=== PATIENT | male | born 1935 | race Caucasian/White ===

== ENCOUNTER 2017-12-16 13:08 | Inpatient (IN) | payer OTHER, BC ==
--- NOTE | 2017-12-16 13:51 | EKG ---
Test Date: 2017-12-16 Test Time: 13:18:10 [employer]: GUIDO MEASUREMENT RESULTS: Intervals: Rate: 67 [place]: QRSD: 52 QT: 402 QTc: 424 [place]: P: [place]: QRS: 4 T: 0 INTERPRETIVE STATEMENTS: NORMAL SINUS RHYTHM rhythm Cannot rule out Anterior infarct, age undetermined Abnormal ECG No previous ECG available for comparison Electronically Signed On 12-16-17 13:51:20 CDT by Vicente Quigley
--- NOTE | 2017-12-16 14:13 | RAD REPORT ---
EXAM DESCRIPTION: RAD - Chest Single View - 12/16/2017 2:05 pm CLINICAL HISTORY: AMS, tachypnea Chest pain. COMPARISON: CHEST SINGLE VIEW dated 08/03/2014 FINDINGS: Portable technique limits examination quality. The lungs are grossly clear. The patient's chin obscures the left apex. The heart is normal in size. No displaced fractures. IMPRESSION: No acute intrathoracic process suspected.
--- NOTE | 2017-12-16 14:13 | RAD REPORT ---
EXAM DESCRIPTION: CT - Head Brain Wo Cont - 12/16/2017 1:36 pm CLINICAL HISTORY: MENTAL STATUS CHANGE Drowsiness COMPARISON: HEAD BRAIN W O CONTRAST dated 08/03/2014 TECHNIQUE: All CT scans are performed using dose optimization technique as appropriate and may inclu de automated exposure control or mA/KV adjustment according to patient size. FINDINGS: The patient could not be positioned normally due to clinical status which causes significa nt artifact, especially in the frontal lobe regions. Grossly, no acute hemorrhage or midline shift is seen.No hydrocephalus suspected.Moderate brain atrop hy and chronic microvascular ischemic changes are noted. The paranasal sinuses and mastoids are clear. The calvarium is intact. IMPRESSION: Limited examination due to patient positioning issues. Within this limitation, no gross acute finding is seen.
[2017-12-16 14:52] LABS: Urine Blood 3+ (NEG); Urine Glucose NEGATIVE (NEG); Urine Protein 3+ (NEG); Urine Specific Gravity 1.025 (1.005-1.030); Urine pH 6.5 (5.0-7.0)
[2017-12-16 14:54] LABS: Urine Bacteria >50 /HPF (NONE SEEN); Urine RBC LOADED /HPF (NONE SEEN)
[2017-12-16 14:55] LABS: Urine Culture Reflex Order NOT NEEDED
[2017-12-16 15:44] LABS: Absolute Lymphocytes (CBC) 1.3 K/uL (0.7-4.9); Absolute Monocytes 0.8 K/uL (0.1-1.3); Absolute Neutrophil 7.8 K/uL (1.8-8.0); Basophils % 0.6 % (0-1.3); Eosinophils % 0.4 % (0-4.4); Hematocrit 28.7 % (39.6-49.0); Lymphocytes % 12.9 % (15.3-44.8); MCH 27.9 pg (27.0-35.0); MCV 84.4 fL (80-100); MPV 7.3 fL (7.6-11.3); Monocytes % 8.1 % (3.3-12.3)
[2017-12-16 15:51] LABS: Protime INR 1.13
[2017-12-16] MEDS ORDERED: CEFTRIAXONE/SWI 1gm 1 GM/10 ML SYR ONE (15:59)
[2017-12-16 16:01] LABS: Potassium 5.4 mmol/L (3.5-5.1)
--- NOTE | 2017-12-16 17:42 | EDPHYS ---
Physician Documentation [facility] Name: Farhad Martin Jr Age: 82 yrs Sex: Male : 1935 Arrival Date: 12/16/2017 Time: 13:10 Bed 5 Private MD: ED Physician Jason Jackson HPI: 12/16 15:37 This 82 yrs old Male presents to ER via EMS with complaints of Altered Mental rn Status. 15:37 The patient presents with decreased responsiveness. Onset: The symptoms/episode rn began/occurred this morning. Possible causes: unknown. Current symptoms: In the emergency department the patient's symptoms are unchanged from the initial presentation. The patient has experienced a previous episode. Sent by long-term for AMS, + fever, last time had UTI when presented like this, per long-term, not at baseline. . Historical: - Allergies: 13:27 Hydrochlorothiazide; kr2 - Home Meds: 13:27 ferrous sulfate 325 mg (65 mg iron) Oral tab [Active]; Vitamin B-12 1,000 mcg Oral tab kr2 [Active]; mirtazapine 7.5 mg Oral tab [Active]; acarbose 100 mg Oral tab 3 times per day [Active]; Novolog 100 unit/mL Sub-Q soln [Active]; clonidine HCl 0.1 mg Oral tab 1 tab PRN [Active]; Vitamin C 500 mg Oral tab [Active]; Multiple Vitamins oral tab [Active]; atorvastatin 10 mg oral tab 1 tab once daily [Active]; gabapentin 400 mg oral cap [Active]; Januvia 100 mg oral tab 1 tab once daily [Active]; melatonin 3 mg Oral tab [Active]; tamsulosin 0.4 mg oral cp24 1 cap once daily [Active]; acetaminophen-codeine 300-30 mg Oral tab three times a day [Active]; docusate sodium 100 mg Oral cap [Active]; magnesium oxide 400 mg Oral cap [Active]; - PMHx: 13:27 Sepsis; Neoplasm of large intestine; Anemia; Hypertension; Dysphagia; Aphasia; Diabetes kr2 - IDDM; CVA; Dementia; Alzheimers; Hyperlipidemia; - PSHx: 13:27 Colostomy; kr2 - Immunization history:: Adult Immunizations unknown. - Social history:: Smoking status: Patient uses tobacco products, chewing tobacco. - Ebola Screening: : No symptoms or risks identified at this time. - Family history:: not pertinent. - Hospitalizations: : No recent hospitalization is reported. ROS: 15:47 Unable to obtain ROS due to altered mental status. rn Exam: 15:47 Constitutional: This is a well developed, well nourished patient who is somnolent, rn opens eyes to voice, doesn't follow commands Head/Face: Normocephalic, atraumatic. ENT: dry MM Neck: contracted and kyphotic state, non-tender Cardiovascular: Regular rate and rhythm with a normal S1 and S2. No gallops, murmurs, or rubs. Normal PMI, no JVD. No pulse deficits. Respiratory: mild tachypnea, clear bilateral breath sounds Abdomen/GI: Soft, non-tender, with normal bowel sounds. No distension or tympany. No guarding or rebound. No evidence of tenderness throughout. MS/ Extremity: Pulses equal, no cyanosis. Neuro: Somnolent, opens eyes to voice, doesn't follow commands Vital Signs: 13:28 BP 201 / 83; Pulse 74; Resp 19; Temp 99(O); Pulse Ox 97% on R/A; Weight 64.86 kg; kr2 Height 5 ft. 8 in. (172.72 cm); 14:57 BP 191 / 81; Pulse 75; Resp 19; Pulse Ox 97% on R/A; kr2 15:21 BP 185 / 79; Pulse 70; Resp 18; Pulse Ox 98% on R/A; dh3 17:25 BP 165 / 64; Pulse 68; Resp 20; Pulse Ox 99% on R/A; kr2 19:06 BP 170 / 78; Pulse 69; Resp 18; Pulse Ox 95% on R/A; mt 13:28 Body Mass Index 21.74 (64.86 kg, 172.72 cm) kr2 Procedures: 15:46 Peripheral line: by aseptic technique a peripheral line was placed in the left rn antecubital vein, Using u/s guidance, single stick, 4 syringes of blood pulled, good flush.. MDM: 13:10 Patient medically screened. rn 17:38 Differential Diagnosis: electrolyte abnormality, pneumonia, sepsis, UTI, volume rn depletion. 17:39 Data reviewed: vital signs, nurses notes, lab test result(s), radiologic studies, CT rn scan, plain films, and as a result, I will admit patient. Counseling: I had a detailed discussion with the patient and/or guardian regarding: the historical points, exam findings, and any diagnostic results supporting the discharge/admit diagnosis, lab results, radiology results, the need for further work-up and treatment in the hospital. Response to treatment: the patient's symptoms have mildly improved after treatment, and as a result, I will admit patient. Admission orders: after a detailed discussion of the patient's condition and case, the admit orders are written by me. 12/16 13:12 Order name: Urine Microscopic Only; Complete Time: 15:30 12/16 13:12 Order name: Basic Metabolic Panel; Complete Time: 17: 12/16 13:12 Order name: CBC with Diff; Complete Time: 17: 12/16 13:12 Order name: Protime (+inr); Complete Time: 17: 12/16 13:12 Order name: Ptt, Activated; Complete Time: 17: 12/16 13:12 Order name: Troponin (emerg Dept Use Only); Complete Time: 17: 12/16 13:12 Order name: Urine Culture 12/16 13:12 Order name: Procalcitonin; Complete Time: 17: 12/16 13:12 Order name: Lactate; Complete Time: 17: 12/16 13:32 Order name: Glucose, Ancillary Testing; Complete Time: 14:15 [facility] 12/16 14:08 Order name: Blood Culture Adult (2) 12/16 14:24 Order name: Urine Dipstick--Ancillary (enter results) 12/16 14:24 Order name: Urine Dipstick-Ancillary; Complete Time: 15:30 [facility] 12/16 19:19 Order name: Lactate Sepsis 2 HR Follow-up [facility] 12/16 13:12 Order name: CT Head Brain wo Cont; Complete Time: 14:15 12/16 13:12 Order name: EKG; Complete Time: 13:13 12/16 13:12 Order name: Cardiac monitoring; Complete Time: 13:37 12/16 13:12 Order name: EKG - Nurse/Tech; Complete Time: 16:24 12/16 13:12 Order name: IV Saline Lock; Complete Time: 13:37 12/16 13:12 Order name: Labs collected and sent; Complete Time: 13:37 rn 12/16 13:12 Order name: NPO; Complete Time: 13:37 rn 12/16 13:12 Order name: O2 Per Protocol; Complete Time: 13:37 rn 12/16 13:12 Order name: O2 Sat Monitoring; Complete Time: 13:37 rn 12/16 13:12 Order name: Urine Dipstick-Ancillary (obtain specimen); Complete Time: 16:10 rn 12/16 13:12 Order name: XRAY Chest (1 view); Complete Time: 14:15 rn 12/16 13:12 Order name: Glucose Level; Complete Time: 13:37 rn Administered Medications: 14:00 Drug: NS 0.9% 500 ml Route: IV; Rate: bolus; Site: right hand; kr2 15:00 Follow up: Response: No adverse reaction; IV Status: Completed infusion kr2 16:00 Drug: Rocephin - (cefTRIAXone) 1 grams Route: IVPB; Infused Over: 30 mins; Site: right kr2 hand; 16:30 Follow up: Response: No adverse reaction; IV Status: Completed infusion kr2 Point of Care Testing: Blood Glucose: 13:29 Blood Glucose: 177 mg/dL; kr2 Ranges: Critical Glucose Levels:Adult <50 mg/dl or >400 mg/dl <40 mg/dl or >180 mg/dl Disposition: 12/16/17 17:41 Hospitalization ordered by Viviane Abad for Inpatient Admission. Preliminary diagnosis are Urinary tract infection, site not specified, Altered mental status, unspecified. - Bed requested for Telemetry/MedSurg (Inpatient). - Status is Inpatient Admission. bp - Condition is Stable. - Problem is new. - Symptoms have improved. UTI on Admission? Yes Signatures: Dispatcher [employer] EDMS Jason Jackson MD MD rn Peltier, Brian RN RN Vivien Jimenez RN RN autumn2 Iesha Rivera Corrections: (The following items were deleted from the chart) 18:24 17:41 Hospitalization Ordered by Viviane Abad MD for Inpatient Admission. Preliminary eb diagnosis is Urinary tract infection, site not specified; Altered mental status, unspecified. Bed requested for Telemetry/MedSurg (Inpatient). Status is Inpatient Admission. Condition is Stable. Problem is new. Symptoms have improved. UTI on Admission? Yes. rn 20:17 18:24 12/16/2017 17:41 Hospitalization Ordered by Viviane Abad MD for Inpatient bp Admission. Preliminary diagnosis is Urinary tract infection, site not specified; Altered mental status, unspecified. Bed requested for Telemetry/MedSurg (Inpatient). Status is Inpatient Admission. Condition is Stable. Problem is new. Symptoms have improved. UTI on Admission? Yes. eb
--- NOTE | 2017-12-16 17:42 | ER ---
Nurse's Notes [facility] Name: Farhad Martin Jr Age: 82 yrs Sex: Male : 1935 Arrival Date: 12/16/2017 Time: 13:10 Bed 5 Private MD: Diagnosis: Urinary tract infection, site not specified;Altered mental status, unspecified Presentation: 12/16 13:11 Presenting complaint: EMS states: patient is a resident at [facility]. Staff kr2 noticed he was mentally altered at around 1000 today. He is normally talkative but today he will not respond verbally. He has a history of HTN, DM, Hyperlipidemia has a colostomy and a mane in place. Staff at the facility report he demonstrated this behavior with a prior UTI. Transition of care: patient was received from another setting of care (long-term care facility), [facility]. Onset of symptoms was December 16, 2017 at 10:00. Risk Assessment: Do you want to hurt yourself or someone else? Patient reports no desire to harm self or others. Initial Sepsis Screen: Does the patient meet any 2 criteria? No. Patient's initial sepsis screen is negative. Does the patient have a suspected source of infection? Yes: Catheter related infection (Mane/dialysis/PICC/central line). Care prior to arrival: IV initiated. 20 GA, in the left hand, Glucose check: 196. 13:11 Method Of Arrival: EMS: [facility] kr2 13:11 Acuity: KHOA 3 kr2 Triage Assessment: 13:15 General: Appears in no apparent distress. comfortable, slender, well groomed, Behavior kr2 is calm. Pain: Unable to use pain scale. Patient is disoriented. Neuro: Level of Consciousness is awake, alert, Oriented to Patient will only respond "hello" when his name is called. Otherwise is non-verbal at this time. 13:15 EENT: Oral mucosa is dry. Cardiovascular: Capillary refill < 3 seconds in bilateral kr2 fingers Patient's skin is warm and dry. Rhythm is regular. Respiratory: Airway is patent Respiratory effort is even, unlabored, Respiratory pattern is regular, symmetrical. GI: Abdomen is flat, non-distended, Colostomy site is clean and dry. Ostomy appliance is intact. : Mane in place to gravity drainage Urine is cloudy, blood tinged. Derm: Skin is fragile, with poor turgor Skin is pink, warm \\T\\ dry. Musculoskeletal: Range of motion: limited in all extremities. Historical: - Allergies: 13:27 Hydrochlorothiazide; kr2 - Home Meds: 13:27 ferrous sulfate 325 mg (65 mg iron) Oral tab [Active]; Vitamin B-12 1,000 mcg Oral tab kr2 [Active]; mirtazapine 7.5 mg Oral tab [Active]; acarbose 100 mg Oral tab 3 times per day [Active]; Novolog 100 unit/mL Sub-Q soln [Active]; clonidine HCl 0.1 mg Oral tab 1 tab PRN [Active]; Vitamin C 500 mg Oral tab [Active]; Multiple Vitamins oral tab [Active]; atorvastatin 10 mg oral tab 1 tab once daily [Active]; gabapentin 400 mg oral cap [Active]; Januvia 100 mg oral tab 1 tab once daily [Active]; melatonin 3 mg Oral tab [Active]; tamsulosin 0.4 mg oral cp24 1 cap once daily [Active]; acetaminophen-codeine 300-30 mg Oral tab three times a day [Active]; docusate sodium 100 mg Oral cap [Active]; magnesium oxide 400 mg Oral cap [Active]; - PMHx: 13:27 Sepsis; Neoplasm of large intestine; Anemia; Hypertension; Dysphagia; Aphasia; Diabetes kr2 - IDDM; CVA; Dementia; Alzheimers; Hyperlipidemia; - PSHx: 13:27 Colostomy; kr2 - Immunization history:: Adult Immunizations unknown. - Social history:: Smoking status: Patient uses tobacco products, chewing tobacco. - Ebola Screening: : No symptoms or risks identified at this time. - Family history:: not pertinent. - Hospitalizations: : No recent hospitalization is reported. Screenin:14 Abuse screen: Denies threats or abuse. Denies injuries from another. Nutritional kr2 screening: No deficits noted. Tuberculosis screening: No symptoms or risk factors identified. Fall Risk IV access (20 points). Gait- Impaired (20 pts.). Mental Status- Overestimates/Forgets Limitations (15 pts.). Assessment: 13:30 Reassessment: See triage assessment. kr2 14:53 Reassessment: Patient appears in no apparent distress at this time. Patient and/or kr2 family updated on plan of care and expected duration. Pain level reassessed. Lab unable to obtain ordered labs, Dr. Jackson notified and he will attempt ultrasound IV. 15:30 Reassessment: Patient appears in no apparent distress at this time. Patient and/or kr2 family updated on plan of care and expected duration. Pain level reassessed. 16:30 Reassessment: No changes from previously documented assessment. kr2 17:24 Reassessment: Patient appears in no apparent distress at this time. Patient and/or kr2 family updated on plan of care and expected duration. Pain level reassessed. No signs or symptoms of pain. Patient alert to name but does not respond verbally. 18:30 Reassessment: Patient appears in no apparent distress at this time. Patient and/or kr2 family updated on plan of care and expected duration. Pain level reassessed. 19:00 Reassessment: RECD REPORT FROM VIVIEN GONZALEZ. 82YO WM SENT FROM [facility] FOR AMS. 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 ADMIT IN PROCESS. Vital Signs: 13:28 BP 201 / 83; Pulse 74; Resp 19; Temp 99(O); Pulse Ox 97% on R/A; Weight 64.86 kg; kr2 Height 5 ft. 8 in. (172.72 cm); 14:57 BP 191 / 81; Pulse 75; Resp 19; Pulse Ox 97% on R/A; kr2 15:21 BP 185 / 79; Pulse 70; Resp 18; Pulse Ox 98% on R/A; dh3 17:25 BP 165 / 64; Pulse 68; Resp 20; Pulse Ox 99% on R/A; kr2 19:06 BP 170 / 78; Pulse 69; Resp 18; Pulse Ox 95% on R/A; mt 13:28 Body Mass Index 21.74 (64.86 kg, 172.72 cm) kr2 ED Course: 13:10 Patient arrived in ED. kr2 13:10 Jason Jackson MD is Attending Physician. rn 13:14 Triage completed. kr2 13:25 Arm band placed on. kr2 13:29 Patient has correct armband on for positive identification. Bed in low position. Call 2 light in reach. Side rails up X 1. pipe line maintenance supervisor on. Pulse ox on. NIBP on. Door closed. Lights dimmed. Verbal reassurance given. Head of bed elevated. 13:30 EKG done, by sales support technician. reviewed by Jason Jackson MD. sm3 13:36 Vivien Doherty, RN is Primary Nurse. kr2 13:37 CT Head Brain wo Cont In Process Unspecified. EDMS 13:50 Inserted saline lock: 20 gauge in right hand, using aseptic technique. Unable to kr2 collect enough blood for ordered labs. Laboratory called and to attempt to draw ordered labs. Provider notified of difficulty obtaining labs. 13:52 CT completed. Patient moved back from CT. vr 13:55 XRAY Chest (1 view) In Process Unspecified. EDMS 14:00 Urine collected: Mane catheter specimen, cloudy, blood tinged, sediment noted. kr2 15:20 Missed attempt(s): 20 gauge in right antecubital area. By Dr. Jackson . Bleeding kr2 controlled, band aid applied, catheter tip intact. 15:25 Inserted saline lock: 22 gauge in left upper arm, using aseptic technique. ,using kr2 aseptic technique. By Dr. Jackson Blood collected. 15:25 First set of blood cultures drawn by physician. kr2 15:40 Second set of blood cultures drawn by physician. kr2 17:41 Viviane Abad MD is Hospitalizing Provider. rn 18:35 Repeat lab(s) drawn. by md, sent to lab. kr2 19:04 Primary Nurse role handed off by Vivien Doherty, CARLOS bp 19:04 Taye Persaud, RN is Primary Nurse. bp 19:45 No provider procedures requiring assistance completed. Patient admitted, IV remains in bp place. Administered Medications: 14:00 Drug: NS 0.9% 500 ml Route: IV; Rate: bolus; Site: right hand; kr2 15:00 Follow up: Response: No adverse reaction; IV Status: Completed infusion kr2 16:00 Drug: Rocephin - (cefTRIAXone) 1 grams Route: IVPB; Infused Over: 30 mins; Site: right kr2 hand; 16:30 Follow up: Response: No adverse reaction; IV Status: Completed infusion kr2 Point of Care Testing: Blood Glucose: 13:29 Blood Glucose: 177 mg/dL; kr2 Ranges: Outcome: 17:41 Decision to Hospitalize by Provider. rn 19:44 Admitted to [facility] accompanied by tech, via stretcher, room 232, with chart, Report bp called to OTIS GONZALEZ 19:44 Condition: stable 19:44 Instructed on the need for admit. 20:17 Patient left the ED. bp Signatures: Dispatcher [employer] EDMS Jason Jackson MD MD rn Davis, Trish Blake, Elise Dawson, [place] 3 Taye Persaud RN RN bp Vivien Doherty RN RN kr2 Bhakti Wong 3 Corrections: (The following items were deleted from the chart) 13:30 13:28 BP 201 / 83; Pulse 74bpm; Resp 19bpm; Pulse Ox 97% RA; Temp 97.8F; 64.86 kg; kr2 Height 5 ft. 8 in.; BMI: 21.7; kr2 14:57 13:15 Neuro: Level of Consciousness is awake, alert, Oriented to Patient will only kr2 respond "hello" when his name is called. Otherwise is non-verbal at this time. kr2 16:16 15:40 Missed attempt(s): 20 gauge in right antecubital area. By Dr. Jackson . Bleeding kr2 controlled, band aid applied, catheter tip intact. kr2 18:42 15:40 First set of blood cultures drawn by physician, Second set of blood cultures kr2 drawn by physician, kr2
--- NOTE | 2017-12-16 18:12 | P.HP ---
Certification for Inpatient Patient admitted to: Inpatient With expected LOS: >2 Midnights Patient will require the following post-hospital care: Other (senior living) Practitioner: I am a practitioner with admitting privileges, knowledge of patient current condition, hospital course, and medical plan of care. Services: Services provided to patient in accordance with Admission requirements found in Title 42 Section 412.3 of the Code of Federal Regulations <Oscar Pardo - Last Filed: 12/16/17 18:07> Patient History Date of Service: 12/16/17 Reason for admission: AMS, UTI History of Present Illness: This is an 82-year-old male that was brought to the ED via EMS. Patient is normally at a senior living for Alzheimer's, cerebral vascular accident, behavioral abnormalities. ED staff stated that patient is normally more alert and responsive despite past medical history. EMS had brought the patient to them because patient is more somnolent today. Patient has a history of this in the past and was from urinary tract infection secondary to an indwelling Caputo catheter. Upon further workup in the emergency room it is found that patient has another urinary tract infection which is most likely causing his acute delirium. It it was also noted that patient has a baseline renal insufficiency but that his potassium was elevated today. Upon examination the patient is somnolent. Minimally responsive. Only alert to painful stimulus. Patient will be admitted for urinary tract infection and acute delirium, along with dehydration and renal insufficiency and hyperkalemia. Home medications list reviewed: Yes - Past Medical/Surgical History Diabetic: No -: HTN -: HLD -: HX OF COLON CA -: COLOSTOMY -: COLON RESECTION - Family History Father -: Hypertension, Diabetes, Stroke Mother -: Cancer Brother -: Cancer - Social History Alcohol use: Yes CD- Drugs: No Caffeine use: Yes Place of Residence: Care Home <Oscar Pardo - Last Filed: 12/16/17 18:07> Date of Service: 12/16/17 <Mary Baker - Last Filed: 12/16/17 18:35> Allergies No Known Allergies Allergy (Unverified 07/31/14 11:50) Home Medications: Atorvastatin Calcium [Lipitor] 40 mg PO BEDTIME 07/31/14 Gabapentin [Neurontin*] 300 mg PO DAILY 07/31/14 Lisinopril/Hydrochlorothiazide [Zestoretic 20-25 mg Tablet] 1 tab PO DAILY 07/31 Sitagliptin Phos/Metformin HCl [Janumet Xr 50-1,000 mg Tablet] 1 tab PO BID 08/12 Acetaminophen [Tylenol Extra Strength] 500 mg PO Q6H PRN #50 tablet 08/14/14 Baclofen [Lioresal*] 10 mg PO BID PRN #60 tab 08/14/14 Famotidine [Pepcid*] 20 mg PO BID #40 tab 08/14/14 Glimepiride [Amaryl*] 3 mg PO BIDWM #90 tab 08/14/14 Hydrocortisone Cream [Hydrocortisone 0.5% Cream*] 1 appl TOP TID PRN #3 tube Melatonin [Melatonin*] 3 mg PO BEDTIME PRN PRN #30 tablet 08/14/14 Memantine HCl [Namenda*] 5 mg PO DAILY #30 tablet 08/14/14 Rivaroxaban [Xarelto*] 10 mg PO DAILY #30 tablet 08/14/14 Tamsulosin [Flomax*] 0.4 mg PO BEDTIME #30 cap 08/14/14 cloNIDine HCl [Catapres*] 0.1 mg PO Q6H PRN #120 tab 08/14/14 Review of Systems is unable to be obtained (Patient somnolent and with altered mental status) <Oscar Pardo - Last Filed: 12/16/17 18:07> Physical Examination - Vital Signs Temperature: 99.0 F Blood Pressure: 165/64 Pulse: 70 Respirations: 18 Pulse Ox (%): 94 - Physical Exam General: Delirious, Unresponsive HEENT: PERRLA, Other (Mucous membranes dry) Neck: Supple, 2+ carotid pulse no bruit Respiratory: Clear to auscultation bilaterally, Normal air movement Cardiovascular: No edema, Normal pulses, Regular rate/rhythm Capillary refill: <2 Seconds Gastrointestinal: Normal bowel sounds, Soft and benign, Non-distended, No ascites, No masses, No rebound, No guarding Musculoskeletal: No clubbing, No swelling, No contractures, No erythema, No tenderness, No warmth Integumentary: No rashes, No breakdown, No significant lesion Neurological: Other (Patient is somnolent. Alert to painful stimulus only. Speech is confused and incomprehensible), Abnormal speech, Dementia - Studies Laboratory Data (last 24 hrs) 12/16/17 15:33: PT 13.3 H, INR 1.13, APTT 24.3 12/16/17 15:33: WBC 10.0, Hgb 9.5 L, Hct 28.7 L, Plt Count 499 H 12/16/17 15:33: Sodium 142, Potassium 5.4 H, BUN 35 H, Creatinine 2.70 H, Glucose 182 H <Oscar Pardo - Last Filed: 12/16/17 18:07> - Studies Laboratory Data (last 24 hrs) 12/16/17 15:33: PT 13.3 H, INR 1.13, APTT 24.3 12/16/17 15:33: WBC 10.0, Hgb 9.5 L, Hct 28.7 L, Plt Count 499 H 12/16/17 15:33: Sodium 142, Potassium 5.4 H, BUN 35 H, Creatinine 2.70 H, Glucose 182 H <Mary Baker - Last Filed: 12/16/17 18:35> Assessment and Plan - Problems (Diagnosis) (1) Hyperkalemia Current Visit: Yes Status: Acute (2) Chronic kidney disease Current Visit: Yes Status: Acute (3) Urinary tract infection Current Visit: Yes Status: Acute (4) Delirium Current Visit: Yes Status: Acute (5) Dehydration Current Visit: Yes Status: Acute (6) Hypertension Onset Date: 08/02/14 Current Visit: No Status: Acute - Plan 1. Patient has received and will continue to be on antibiotics for urinary tract infection. 2. Patient will have continuous IV hydration for dehydration and renal insufficiency. 3. Patient will receive medications to combat against hyperkalemia. Potassium will be redrawn in 4 hr post administration of medication. 4. Labs will be drawn daily to ensure renal function and other electrolytes remained in a normal state. If needed nephrology will be consulted for this visit. 5. Neurologic checks and monitoring will continue throughout hospital stay to see if the patient's mental status improves as antibiotics are administered an IV hydration is continued. Discharge Plan: Care Home Plan to discharge in: Greater than 2 days - Advance Directives Does patient have a Living Will: No Does patient have a Durable POA for Healthcare: No <Oscar Pardo - Last Filed: 12/16/17 18:07> - Plan Case discussed with ASAEL Camacho. Agree with above <Mary Baker - Last Filed: 12/16/17 18:35>
[2017-12-16] MEDS ORDERED: ONDANSETRON 4 MG/2 ML VIAL IV PRN ×2 (19:57→20:07)
[2017-12-16] MEDS ORDERED: ACETAMINOPHEN 500 MG TAB PO PRN (19:57)
[2017-12-16] MEDS ORDERED: MORPHINE 2 MG/ML SYR IV PRN (19:57)
[2017-12-16] MEDS ORDERED: NA CHLORIDE 0.9% 1,000 ML IV SCH (20:00)
[2017-12-16] MEDS ORDERED: ACETAMINOPHEN 650MG/RECT SUPP PR PRN (20:07)
[2017-12-16] MEDS ORDERED: BACLOFEN 10 MG TAB PO PRN (20:07)
[2017-12-16 20:44] VITALS: BMI 22.6
[2017-12-16] MEDS ORDERED: D50W 25 GM/50 ML SYRINGE IV ONE (20:55)
[2017-12-16] MEDS ORDERED: ALBUTEROL 2.5 MG/3 ML NEB SOL NEB ONE (20:55)
[2017-12-16] MEDS ORDERED: INSULIN -REGULAR HUMAN 50 UNIT/0.5 ML ML IV ONE (20:57)
[2017-12-16] MEDS ORDERED: ATORVASTATIN 40 MG TAB PO SCH (21:00)
[2017-12-16] MEDS ORDERED: TAMSULOSIN 0.4 MG SR CAP PO SCH (21:00)
[2017-12-16] MEDS ORDERED: ONDANSETRON 4 MG/2 ML VIAL ONE (21:21)
[2017-12-16] MEDS: NA CHLORIDE 0.9% 1,000 ML IV SCH (21:28)
[2017-12-17] MEDS ORDERED: NA CHLORIDE 0.9% 50 ML ONE (05:08)
[2017-12-17] MEDS ORDERED: CEFTRIAXONE 1000 MG/VIAL ONE (05:09)
[2017-12-17] MEDS: NA CHLORIDE 0.9% 1,000 ML IV SCH ×2 (05:10→11:09)
[2017-12-17 05:21] LABS: Absolute Lymphocytes (CBC) 1.9 K/uL (0.7-4.9); Absolute Monocytes 1.3 K/uL (0.1-1.3); Absolute Neutrophil 3.8 K/uL (1.8-8.0); Basophils % 0.7 % (0-1.3); Eosinophils % 0.5 % (0-4.4); Hematocrit 24.5 % (39.6-49.0); Lymphocytes % 26.9 % (15.3-44.8); MCH 28.9 pg (27.0-35.0); MCV 84.4 fL (80-100); MPV 7.5 fL (7.6-11.3); Monocytes % 18.4 % (3.3-12.3)
[2017-12-17 05:47] LABS: Albumin 2.3 g/dL (3.4-5.0); Bilirubin Total 0.2 mg/dL (0.2-1.0); Potassium 4.5 mmol/L (3.5-5.1); Protein, Total 6.6 g/dL (6.4-8.2)
[2017-12-17] MEDS ORDERED: CEFTRIAXONE 1 GM/NS 50 ML 1 GM/50 ML BAG IV SCH (06:00)
--- NOTE | 2017-12-17 06:10 | P.PN ---
Subjective Date of Service: 12/17/17 Subjective: No new changes, Improving (Patient is doing better. Continue with current plan of care.) Review of Systems 10-point ROS is otherwise unremarkable Physical Examination - Vital Signs Temperature: 97.9 F Blood Pressure: 144/67 Pulse: 60 Respirations: 18 Pulse Ox (%): 98 - Physical Exam General: Alert, In no apparent distress, Oriented x3 HEENT: Atraumatic, PERRLA, EOMI Neck: Supple, JVD not distended Respiratory: Clear to auscultation bilaterally, Normal air movement Cardiovascular: Regular rate/rhythm, Normal S1 S2, Systolic murmur Gastrointestinal: Normal bowel sounds, Soft and benign, Non-distended, No tenderness Musculoskeletal: No clubbing, No swelling, No contractures, No tenderness Integumentary: No rashes Neurological: Normal speech, Normal tone, Normal affect Lymphatics: No axilla or inguinal lymphadenopathy - Studies Laboratory Data (last 24 hrs) 12/16/17 15:33: PT 13.3 H, INR 1.13, APTT 24.3 12/16/17 15:33: WBC 10.0, Hgb 9.5 L, Hct 28.7 L, Plt Count 499 H 12/16/17 15:33: Sodium 142, Potassium 5.4 H, BUN 35 H, Creatinine 2.70 H, Glucose 182 H Medications List Reviewed: Yes Assessment & Plan - Problems (Diagnosis) (1) Chronic kidney disease Current Visit: Yes Status: Acute (2) Dehydration Current Visit: Yes Status: Acute (3) Delirium Current Visit: Yes Status: Acute (4) Diabetes mellitus Onset Date: 08/02/14 Current Visit: No Status: Acute (5) Dyslipidemia Onset Date: 08/02/14 Current Visit: No Status: Acute (6) Encounter for rehabilitation Onset Date: 08/02/14 Current Visit: No Status: Acute (7) Hypertension Onset Date: 08/02/14 Current Visit: No Status: Acute (8) Peripheral neuropathy Onset Date: 08/02/14 Current Visit: No Status: Acute - Plan Plan: 1. Continue with gentle hydration 2. Considering bicarbonate drip 3. Monitor H&H 4. Out of bed and ambulate with assistance 5. GI and DVT prophylaxis - Advance Directives Does patient have a Living Will: No Does patient have a Durable POA for Healthcare: No
[2017-12-17] MEDS: GLIMEPIRIDE 2 MG TABLET PO SCH ×2 (08:00→17:00)
[2017-12-17] MEDS ORDERED: RIVAROXABAN 10 MG TABLET PO SCH (09:00)
[2017-12-17] MEDS ORDERED: GABAPENTIN 100 MG CAP PO SCH (09:00)
[2017-12-17] MEDS ORDERED: NA CHLORIDE 0.9% 500 ML IV ONE (09:31)
[2017-12-17] MEDS ORDERED: DEXAMETHASONE 4 MG/ML VIAL IV ONE (09:35)
[2017-12-17 09:44] LABS: Blood Morphology Comment NOTED (NOT SEEN); Platelet Estimate INCR; Urine White Blood Cell Casts OK
[2017-12-17 09:45] LABS: Anisocytosis 1+; Poikilocytosis 1+
[2017-12-17] MEDS: MORPHINE 4 MG/ML SYR IV PRN ×2 (15:31→22:56)
--- NOTE | 2017-12-17 16:56 | RAD REPORT ---
EXAM DESCRIPTION: RAD - Barium Swallow Modified - 12/17/2017 4:51 pm CLINICAL HISTORY: Cough and choking FINDINGS: Laryngeal penetration: not cleared. deep to cords with nectar Aspiration: no cough with thin Pureed bolus passed into the lower esophagus with out incident Fourteen fluoroscopic series were obtained. Fluoro time 3.2 minutes
[2017-12-17] MEDS: BACLOFEN 10 MG TAB PO PRN (16:59)
[2017-12-17] MEDS: CEFTRIAXONE/SWI 1gm 1 GM/10 ML SYR IV SCH (17:46)
[2017-12-17] MEDS ORDERED: INSULIN DETEMIR 100 UNIT/1 ML INSULIN SQ SCH (21:00)
[2017-12-17] MEDS: GABAPENTIN 400 MG CAP PO SCH (22:15)
[2017-12-17] MEDS: TAMSULOSIN 0.4 MG SR CAP PO SCH (22:18)
[2017-12-17] MEDS: ATORVASTATIN 10 MG TAB PO SCH (22:18)
[2017-12-17] MEDS: JUVEN PACKET PO SCH (22:19)
[2017-12-18] MEDS: NA CHLORIDE 0.9% 1,000 ML IV SCH ×3 (00:45→22:07)
[2017-12-18] MEDS: CEFTRIAXONE/SWI 1gm 1 GM/10 ML SYR IV SCH ×2 (05:15→17:13)
--- NOTE | 2017-12-18 05:53 | P.PN ---
Date of Service: 12/17/17 Had a long talk with patient's family. They state that normally he normally does not have so much difficulty with his speech. And when he has a urinary tract infection he normally recovers within 24 hrs. He is doing better then admission. At this time, will get a speech therapy evaluation. We will continue with hydration. 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 May need to repeat a CT of the brain or do a CT angiogram if his confusion does not resolve. Physical therapy evaluation as well.
[2017-12-18 07:15] LABS: Absolute Lymphocytes (CBC) 1.2 K/uL (0.7-4.9); Absolute Monocytes 0.9 K/uL (0.1-1.3); Absolute Neutrophil 4.4 K/uL (1.8-8.0); Basophils % 0.5 % (0-1.3); Eosinophils % 0.7 % (0-4.4); Hematocrit 22.4 % (39.6-49.0); Lymphocytes % 18.6 % (15.3-44.8); MCH 28.3 pg (27.0-35.0); MCV 83.7 fL (80-100); MPV 7.5 fL (7.6-11.3); Monocytes % 13.2 % (3.3-12.3); RBC Red Blood Cell Count 2.67 M/uL (4.33-5.43)
[2017-12-18] MEDS: JUVEN PACKET PO SCH ×2 (09:00→22:11)
[2017-12-18] MEDS ORDERED: ASPIRIN 81 MG CHEWABLE TABLET PO SCH (09:00)
[2017-12-18] MEDS ORDERED: CODEINE 30MG/APAP 300MG TAB PO PRN ×2 (09:16→13:28)
[2017-12-18] MEDS: GLIMEPIRIDE 2 MG TABLET PO SCH (10:03)
[2017-12-18] MEDS: BACLOFEN 10 MG TAB PO PRN (10:03)
--- NOTE | 2017-12-18 11:57 | P.PN ---
Subjective Date of Service: 12/18/17 Chief Complaint: AMS, UTI Shunt seen and examined at bedside with RN. Chart reviewed. Currently patient is alert and oriented x3. Has been doing well overall. No complaints to offer overnight. Review of Systems General: As per HPI Physical Examination - Vital Signs Temperature: 97.5 F Blood Pressure: 187/81 Pulse: 61 Respirations: 18 Pulse Ox (%): 99 - Physical Exam General: Alert, In no apparent distress, Oriented x3, Cachectic HEENT: Atraumatic Neck: Supple Respiratory: Normal air movement, Crackles/rales Cardiovascular: Regular rate/rhythm, Normal S1 S2 Gastrointestinal: Normal bowel sounds, No tenderness Musculoskeletal: No tenderness Integumentary: No rashes Neurological: Normal speech, Normal tone, Normal affect Lymphatics: No axilla or inguinal lymphadenopathy - Studies Microbiology Data (last 24 hrs): 12/16/17 14:15 Catheterized Urine [place] Count - Final >100,000 CFU/ML. 12/16/17 14:15 Catheterized Urine - Final Pseudomonas Aeruginosa Medications List Reviewed: Yes Assessment & Plan - Problems (Diagnosis) (1) Toxic encephalopathy Current Visit: Yes Status: Acute Plan: AMS due to UTI vs Dehydration. Resolved now. -Urine culture + for pseudomonus -Currently on IV Rocephin will switch to levaquin on DC. (2) Chronic kidney disease Onset Date: 12/17/17 Current Visit: Yes Status: Acute Plan: Acute on Chronic KD. Due to UTI vs dehydration -IV fluids and IV rocephin for now Qualifiers: Chronic kidney disease stage: stage 3 (moderate) Qualified Code(s): N18.3 - Chronic kidney disease, stage 3 (moderate) (3) Urinary tract infection Onset Date: 12/17/17 Current Visit: Yes Status: Acute Plan: Urine Culture + for pseudomonus -IV rocephin for now Qualifiers: Urinary tract infection type: acute cystitis Hematuria presence: without hematuria Qualified Code(s): N30.00 - Acute cystitis without hematuria (4) Diabetes mellitus Onset Date: 08/02/14 Current Visit: No Status: Chronic Qualifiers: Diabetes mellitus type: type 2 Diabetes mellitus longterm insulin use: without longterm use Diabetes mellitus complication status: without complication Qualified Code(s): E11.9 - Type 2 diabetes mellitus without complications (5) Dyslipidemia Onset Date: 08/02/14 Current Visit: No Status: Chronic (6) Hypertension Onset Date: 08/02/14 Current Visit: No Status: Chronic Qualifiers: Hypertension type: essential hypertension Qualified Code(s): I10 - Essential (primary) hypertension (7) Stenosis, cervical spine Onset Date: 08/02/14 Current Visit: No Status: Chronic (8) Anemia Current Visit: Yes Status: Chronic Plan: Anemia of chronic Disease Due to DKA and with Acute Worsening 2.2 to possible Hemodillution. -1 Unit PRBC -Protonix daily for now -FOBT pending Qualifiers: Anemia type: due to chronic kidney disease Chronic kidney disease stage: stage 3 (moderate) Qualified Code(s): N18.3 - Chronic kidney disease, stage 3 (moderate); D63.1 - Anemia in chronic kidney disease Discharge Plan: [facility] Plan to discharge in: 48 Hours - Code Status/Comfort Care Code Status Assessed: Yes Critical Care: No
[2017-12-18] MEDS ORDERED: GLUCAGON 1 MG/VIAL IM PRN (12:00)
[2017-12-18] MEDS ORDERED: D50W 25 GM/50 ML SYRINGE IV PRN (12:00)
[2017-12-18] MEDS ORDERED: [UNRECOGNIZED DRUG - OTHER] OP PRN (13:28)
[2017-12-18] MEDS ORDERED: CARBOXYMETHYLCELLULOS OP PRN (13:28)
[2017-12-18] MEDS ORDERED: ACETAMINOPHEN 325 MG TABLET PO PRN (13:28)
[2017-12-18] MEDS ORDERED: NA CHLORIDE 0.9% 250 ML ONE (14:13)
[2017-12-18] MEDS: cloNIDine HCl 0.1 MG TAB PO PRN (14:15)
[2017-12-18] MEDS: INSULIN -REGULAR HUMAN 50 UNIT/0.5 ML ML SQ SCH ×2 (16:30→21:51)
[2017-12-18] MEDS ORDERED: ACARBOSE 100 MG PO SCH (17:00)
[2017-12-18 20:23] LABS: Hematocrit 25.6 % (39.6-49.0)
[2017-12-18] MEDS: ATORVASTATIN 10 MG TAB PO SCH (21:49)
[2017-12-18] MEDS: TAMSULOSIN 0.4 MG SR CAP PO SCH (21:49)
[2017-12-18] MEDS: DOCUSATE NA 100 MG CAP PO SCH (21:49)
[2017-12-18] MEDS: ASCORBIC ACID 500 MG TABLET PO SCH (21:49)
[2017-12-18] MEDS: CETIRIZINE HCL 5 MG TABLET PO SCH (21:49)
[2017-12-18] MEDS: FERROUS SULFATE 325 MG TAB PO SCH (21:49)
[2017-12-18] MEDS: GABAPENTIN 400 MG CAP PO SCH (21:49)
[2017-12-18] MEDS: MELATONIN 3 MG TABLET PO SCH (21:50)
[2017-12-19] MEDS: NA CHLORIDE 0.9% 1,000 ML IV SCH ×2 (01:35→08:07)
[2017-12-19 05:03] LABS: Absolute Lymphocytes (CBC) 1.3 K/uL (0.7-4.9); Absolute Neutrophil 5.7 K/uL (1.8-8.0); Basophils % 0.4 % (0-1.3); Eosinophils % 2.3 % (0-4.4); Lymphocytes % 15.6 % (15.3-44.8); MCH 28.6 pg (27.0-35.0); MCV 84.7 fL (80-100); MPV 7.2 fL (7.6-11.3); Monocytes % 12.3 % (3.3-12.3)
[2017-12-19 05:22] LABS: Albumin 2.5 g/dL (3.4-5.0); Bilirubin Total 0.2 mg/dL (0.2-1.0); Protein, Total 6.8 g/dL (6.4-8.2)
[2017-12-19] MEDS: CEFTRIAXONE/SWI 1gm 1 GM/10 ML SYR IV SCH (05:40)
[2017-12-19] MEDS: PANTOPRAZOLE 40MG TABLET PO SCH (05:41)
[2017-12-19] MEDS: INSULIN -REGULAR HUMAN 50 UNIT/0.5 ML ML SQ SCH ×4 (07:30→22:07)
[2017-12-19] MEDS: ASCORBIC ACID 500 MG TABLET PO SCH ×2 (10:38→22:06)
[2017-12-19] MEDS: FERROUS SULFATE 325 MG TAB PO SCH ×2 (10:39→22:05)
[2017-12-19] MEDS: CYANOCOBALAMIN 1,000 MCG TAB PO SCH (10:39)
[2017-12-19] MEDS: MULTIVIT W/ MINERAL TAB PO SCH (10:39)
[2017-12-19] MEDS: DOCUSATE NA 100 MG CAP PO SCH ×2 (10:39→22:06)
[2017-12-19] MEDS: JUVEN PACKET PO SCH ×2 (10:51→22:07)
[2017-12-19] MEDS: cloNIDine HCl 0.1 MG TAB PO PRN (12:07)
--- NOTE | 2017-12-19 12:19 | P.PN ---
Subjective Date of Service: 12/19/17 Chief Complaint: AMS, UTI Shunt seen and examined at bedside with RN. Chart reviewed. Currently patient is alert and oriented x3. Has been doing well overall. No complaints to offer overnight. Review of Systems General: As per HPI Physical Examination - Vital Signs Temperature: 97.6 F Blood Pressure: 160/80 Pulse: 72 Respirations: 18 Pulse Ox (%): 97 - Physical Exam General: Alert, In no apparent distress, Oriented x3 HEENT: Atraumatic, PERRLA, EOMI Neck: Supple, JVD not distended Respiratory: Clear to auscultation bilaterally, Normal air movement Cardiovascular: Regular rate/rhythm, Normal S1 S2 Gastrointestinal: Normal bowel sounds, No tenderness Musculoskeletal: No tenderness Integumentary: No rashes Neurological: Normal speech, Normal tone, Normal affect Lymphatics: No axilla or inguinal lymphadenopathy - Studies Microbiology Data (last 24 hrs): 12/16/17 15:40 Blood - Blood Aerobic Blood Culture - Final Staph Hominis 12/16/17 15:40 Blood - Blood Gram Stain - Final 12/16/17 15:40 Blood - Blood Anaerobic Blood Culture - Final Staph Hominis 12/16/17 15:40 Blood - Blood Gram Stain - Final 12/16/17 15:25 Blood - Blood Aerobic Blood Culture - Final Staph Hominis 12/16/17 15:25 Blood - Blood Gram Stain - Final 12/16/17 15:25 Blood - Blood Anaerobic Blood Culture - Final Staph Hominis 12/16/17 15:25 Blood - Blood Gram Stain - Final 12/16/17 14:15 Catheterized Urine [place] Count - Final >100,000 CFU/ML. 12/16/17 14:15 Catheterized Urine - Final Pseudomonas Aeruginosa Medications List Reviewed: Yes Assessment & Plan - Problems (Diagnosis) (1) Toxic encephalopathy Current Visit: Yes Status: Acute Plan: AMS due to UTI vs Dehydration. Resolved now. -Urine culture + for pseudomonus -Currently on IV Rocephin will switch to levaquin on DC. (2) Chronic kidney disease Onset Date: 12/17/17 Current Visit: Yes Status: Acute Plan: Acute on Chronic KD. Due to UTI vs dehydration -IV fluids and IV rocephin for now Qualifiers: Chronic kidney disease stage: stage 3 (moderate) Qualified Code(s): N18.3 - Chronic kidney disease, stage 3 (moderate) (3) Urinary tract infection Onset Date: 12/17/17 Current Visit: Yes Status: Acute Plan: Urine Culture + for pseudomonus -IV rocephin for now Qualifiers: Urinary tract infection type: acute cystitis Hematuria presence: without hematuria Qualified Code(s): N30.00 - Acute cystitis without hematuria (4) Diabetes mellitus Onset Date: 08/02/14 Current Visit: No Status: Chronic Qualifiers: Diabetes mellitus type: type 2 Diabetes mellitus half-way insulin use: without half-way use Diabetes mellitus complication status: without complication Qualified Code(s): E11.9 - Type 2 diabetes mellitus without complications (5) Dyslipidemia Onset Date: 08/02/14 Current Visit: No Status: Chronic (6) Hypertension Onset Date: 08/02/14 Current Visit: No Status: Chronic Qualifiers: Hypertension type: essential hypertension Qualified Code(s): I10 - Essential (primary) hypertension (7) Stenosis, cervical spine Onset Date: 08/02/14 Current Visit: No Status: Chronic (8) Anemia Current Visit: Yes Status: Chronic Plan: Anemia of chronic Disease Due to CKD -1 Unit PRBC. Hgb Imoroved -Protonix daily for now -FOBT negative Qualifiers: Anemia type: due to chronic kidney disease Chronic kidney disease stage: stage 3 (moderate) Qualified Code(s): N18.3 - Chronic kidney disease, stage 3 (moderate); D63.1 - Anemia in chronic kidney disease (9) Bacteremia Current Visit: Yes Status: Acute Plan: Bacterial culture positive for Staph hominis. Sensitive to clindamycin. Oral clindamycin order. Discharge Plan: Senior Living Plan to discharge in: 24 Hours - Code Status/Comfort Care Code Status Assessed: Yes Critical Care: No
[2017-12-19] MEDS: CLINDAMYCIN HCL 150 MG CAP PO SCH ×2 (18:50→23:08)
[2017-12-19] MEDS: levoFLOXacin 500 MG TAB PO SCH (18:50)
[2017-12-19] MEDS: CETIRIZINE HCL 5 MG TABLET PO SCH (22:05)
[2017-12-19] MEDS: GABAPENTIN 400 MG CAP PO SCH (22:06)
[2017-12-19] MEDS: ATORVASTATIN 10 MG TAB PO SCH (22:06)
[2017-12-19] MEDS: MELATONIN 3 MG TABLET PO SCH (22:06)
[2017-12-19] MEDS: TAMSULOSIN 0.4 MG SR CAP PO SCH (22:06)
[2017-12-20 05:23] LABS: Absolute Lymphocytes (CBC) 1.1 K/uL (0.7-4.9); Absolute Monocytes 0.9 K/uL (0.1-1.3); Absolute Neutrophil 5.6 K/uL (1.8-8.0); Basophils % 0.5 % (0-1.3); Lymphocytes % 13.2 % (15.3-44.8); MCH 29.1 pg (27.0-35.0); MCV 84.9 fL (80-100); MPV 7.4 fL (7.6-11.3); Monocytes % 11.3 % (3.3-12.3); RBC Red Blood Cell Count 2.94 M/uL (4.33-5.43)
[2017-12-20 05:46] LABS: Albumin 2.2 g/dL (3.4-5.0); Bilirubin Total 0.2 mg/dL (0.2-1.0); Potassium 3.9 mmol/L (3.5-5.1); Protein, Total 5.8 g/dL (6.4-8.2)
[2017-12-20] MEDS: CLINDAMYCIN HCL 150 MG CAP PO SCH ×3 (05:54→18:43)
[2017-12-20] MEDS: PANTOPRAZOLE 40MG TABLET PO SCH (05:55)
[2017-12-20] MEDS ORDERED: D50W 25 GM/50 ML SYRINGE IV ONE (06:25)
[2017-12-20] MEDS: INSULIN -REGULAR HUMAN 50 UNIT/0.5 ML ML SQ SCH ×3 (07:30→17:46)
[2017-12-20] MEDS: MULTIVIT W/ MINERAL TAB PO SCH (09:49)
[2017-12-20] MEDS: FERROUS SULFATE 325 MG TAB PO SCH (09:49)
[2017-12-20] MEDS: ASCORBIC ACID 500 MG TABLET PO SCH (09:49)
[2017-12-20] MEDS: CYANOCOBALAMIN 1,000 MCG TAB PO SCH (09:50)
[2017-12-20] MEDS: DOCUSATE NA 100 MG CAP PO SCH (09:50)
[2017-12-20] MEDS: JUVEN PACKET PO SCH (09:51)
--- NOTE | 2017-12-20 15:00 | P.DS ---
Admission Date: 12/16/17 Discharge Date: 12/20/17 Disposition: ROUTINE DISCHARGE Discharge Condition: GOOD Reason for Admission: AMS, UTI Consultations: None - Problems (1) Toxic encephalopathy Current Visit: Yes Status: Acute (2) Chronic kidney disease Onset Date: 12/17/17 Current Visit: Yes Status: Acute Qualifiers: Chronic kidney disease stage: stage 3 (moderate) Qualified Code(s): N18.3 - Chronic kidney disease, stage 3 (moderate) (3) Urinary tract infection Onset Date: 12/17/17 Current Visit: Yes Status: Acute Qualifiers: Urinary tract infection type: acute cystitis Hematuria presence: without hematuria Qualified Code(s): N30.00 - Acute cystitis without hematuria (4) Diabetes mellitus Onset Date: 08/02/14 Current Visit: No Status: Chronic Qualifiers: Diabetes mellitus type: type 2 Diabetes mellitus fdc insulin use: without fdc use Diabetes mellitus complication status: without complication Qualified Code(s): E11.9 - Type 2 diabetes mellitus without complications (5) Dyslipidemia Onset Date: 08/02/14 Current Visit: No Status: Chronic (6) Hypertension Onset Date: 08/02/14 Current Visit: No Status: Chronic Qualifiers: Hypertension type: essential hypertension Qualified Code(s): I10 - Essential (primary) hypertension (7) Stenosis, cervical spine Onset Date: 08/02/14 Current Visit: No Status: Chronic (8) Anemia Current Visit: Yes Status: Chronic Qualifiers: Anemia type: due to chronic kidney disease Chronic kidney disease stage: stage 3 (moderate) Qualified Code(s): N18.3 - Chronic kidney disease, stage 3 (moderate); D63.1 - Anemia in chronic kidney disease (9) Bacteremia Current Visit: Yes Status: Acute Brief History of Present Illness: This is an 82-year-old male that was brought to the ED via EMS. Patient is normally at a half-way for Alzheimer's, cerebral vascular accident, behavioral abnormalities. ED staff stated that patient is normally more alert and responsive despite past medical history. EMS had brought the patient to them because patient is more somnolent today. Patient has a history of this in the past and was from urinary tract infection secondary to an indwelling Caputo catheter. Upon further workup in the emergency room it is found that patient has another urinary tract infection which is most likely causing his acute delirium. It it was also noted that patient has a baseline renal insufficiency but that his potassium was elevated today. Upon examination the patient is somnolent. Minimally responsive. Only alert to painful stimulus. Patient will be admitted for urinary tract infection and acute delirium, along with dehydration and renal insufficiency and hyperkalemia Hospital Course: Overall during the hospital stay patient remained stable Patient was admitted to the hospital initially for altered mental status. Was found to have toxic encephalopathy secondary to urinary tract infection. Patient was found to have Pseudomonas aeruginosa is in his urine which was sensitive to Levaquin. Patient then was switched over to Levaquin once he had resolution of his altered mental status and improvement of his urinary tract infection. Patient did well overall. Blood cultures were also collected in the ER which were positive for Staph Pulmo-Aide this. Which was sensitive to clindamycin. Patient was started on clindamycin at that time orally. Patient did well overall white count had normalized patient became more alert and was able to tolerate his diet well and thus was discharged back to the half-way under stable condition. While here in the hospital patient also had episodes of hypoglycemia early in the morning his insulin was adjusted as patient was not having enough to eat at night time his insulin needs had changed and does need to be adjusted. After which there was called to the [facility] and patient was then transferred to the half-way for further care. Patient will need adjustments in his insulin and diabetic medication once he is a half-way which was communicated to the half-way nurses as well. No other complications were noted during this hospital visit. Patient was to continue taking Levaquin and clindamycin for total of 10 days. Patient will repeat his blood culture the half-way to ensure that it was negative x2 after the initiation of abx Vital Signs/Physical Exam: Temp Pulse Resp BP Pulse Ox 97.4 F 55 18 144/83 H 98 12/20/17 08:00 12/20/17 08:00 12/20/17 08:00 12/20/17 08:00 12/20/17 08:00 General: Alert, In no apparent distress HEENT: Atraumatic, PERRLA, EOMI Neck: Supple, JVD not distended Respiratory: Clear to auscultation bilaterally, Normal air movement Cardiovascular: Regular rate/rhythm, Normal S1 S2 Gastrointestinal: Normal bowel sounds, No tenderness Musculoskeletal: No tenderness Integumentary: No rashes Neurological: Normal speech, Normal tone, Normal affect Lymphatics: No axilla or inguinal lymphadenopathy Laboratory Data at Discharge: WBC 8.0 K/uL (4.3-10.9) 12/20/17 04:56 Hgb 8.6 g/dL (13.6-17.9) L 12/20/17 04:56 Hct 25.0 % (39.6-49.0) L 12/20/17 04:56 Plt Count 362 K/uL (152-406) 12/20/17 04:56 PT 13.3 SECONDS (9.5-12.5) H 12/16/17 15:33 INR 1.13 12/16/17 15:33 APTT 24.3 SECONDS (24.3-36.9) 12/16/17 15:33 Sodium 146 mmol/L (136-145) H 12/20/17 04:56 Potassium 3.9 mmol/L (3.5-5.1) 12/20/17 04:56 BUN 43 mg/dL (7-18) H 12/20/17 04:56 Creatinine 2.00 mg/dL (0.55-1.3) H 12/20/17 04:56 Glucose 45 mg/dL (74-106) L* 12/20/17 04:56 Total Bilirubin 0.2 mg/dL (0.2-1.0) 12/20/17 04:56 AST 11 U/L (15-37) L 12/20/17 04:56 ALT 13 U/L (12-78) 12/20/17 04:56 Alkaline Phosphatase 71 U/L (45-117) 12/20/17 04:56 Home Medications: Acarbose [Precose] 100 mg PO TIDWM 12/16/17 Ascorbic Acid [Vitamin C] 500 mg PO BID 12/16/17 Atorvastatin Calcium [Lipitor] 10 mg PO BEDTIME 12/16/17 Carboxymethylcellulos/Glycerin [Refresh Optive Eye Drops] 1 gtt OP TIDP PRN Codeine/APAP [Tylenol W/Codeine #3 tab] 1 tab PO BIDP PRN 12/16/17 Cyanocobalamin [Vitamin B-12] 1,000 mcg PO DAILY 12/16/17 Docusate [Colace Cap] 100 mg PO BID 12/16/17 Ferrous Sulfate [Feosol] 325 mg PO BID 12/16/17 Gabapentin [Neurontin] 400 mg PO BEDTIME 12/16/17 Glimepiride [Amaryl] 4 mg PO BIDWM 12/16/17 Insuln Asp Prt/Insulin Aspart [Novolog Mix 70-30 Vial] See Protocol SQ ACHS Magnesium Oxide [Mag 0X Tab] 400 mg PO M,W,F 12/16/17 Melatonin [Melatonin*] 6 mg PO BEDTIME 12/16/17 Multivitamin [Multiple Vitamins] 1 each PO DAILY 12/16/17 Sitagliptin Phosphate [Januvia] 100 mg PO BEDTIME 12/16/17 Tamsulosin HCl [Flomax] 0.4 mg PO BEDTIME 12/16/17 cloNIDine HCl [Clonidine HCl] 0.1 mg PO Q6HP PRN 12/16/17 Acetaminophen [Tylenol -Tablet] 650 mg PO Q4HP PRN 12/17/17 Baclofen 5 mg PO Q12HP PRN 12/17/17 Cetirizine HCl [Zyrtec] 10 mg PO BEDTIME 12/17/17 Fluticasone [Flonase 50mcg Nasal [place]] 1 sprays NS DAILY 12/17/17 Insulin Detemir [Levemir*] 5 unit SQ BEDTIME 12/17/17 Nystatin Cream [Mycostatin 100MU/Gm Cream] 1 appl TOP DAILYPRN PRN 12/17/17 Clindamycin HCl 300 mg PO QID #10 capsule 12/19/17 Levofloxacin [Levaquin] 500 mg PO DAILY #10 tablet 12/19/17 New Medications: Clindamycin HCl 300 mg PO QID #10 capsule Levofloxacin [Levaquin] 500 mg PO DAILY #10 tablet Diet: Regular Activity: Ad stevenson
[2017-12-20 17:19] VITALS: TEMP 98.3
[2017-12-20 18:12] VITALS: O2SAT 96
[2017-12-20] MEDS: levoFLOXacin 500 MG TAB PO SCH (18:42)
[2017-12-20 18:49] VITALS: BP 158/78
== END 2017-12-20 19:44 | DRG 698 ==
LOC: ER 13:08 → ERHOLD 17:48 → 2ND 19:48
PROVIDERS: ADMIT Physician Assistant; ATTEND Family Medicine
PROC: 30233N1 Transfusion of Nonautologous Red Blood Cells into Peripheral Vein, Percutaneous Approach (ICD-10-PCS; principal; 2017-12-18)
DX: T83.518A Infection and inflammatory reaction due to other urinary catheter, initial encounter (principal); G92 Toxic encephalopathy; N30.00 Acute cystitis without hematuria; R78.81 Bacteremia; G30.9 Alzheimer's disease, unspecified; F02.80 Dementia in other diseases classified elsewhere, unspecified severity, without behavioral disturbance, psychotic disturbance, mood disturbance, and anxiety; E86.0 Dehydration; E78.5 Hyperlipidemia, unspecified; E87.5 Hyperkalemia; E11.22 Type 2 diabetes mellitus with diabetic chronic kidney disease; Z85.038 Personal history of other malignant neoplasm of large intestine; I12.9 Hypertensive chronic kidney disease with stage 1 through stage 4 chronic kidney disease, or unspecified chronic kidney disease; Z93.3 Colostomy status; Z79.4 Long term (current) use of insulin; E11.42 Type 2 diabetes mellitus with diabetic polyneuropathy; B96.5 Pseudomonas (aeruginosa) (mallei) (pseudomallei) as the cause of diseases classified elsewhere; M48.02 Spinal stenosis, cervical region; D63.1 Anemia in chronic kidney disease; N18.3 Chronic kidney disease, stage 3 (moderate); B95.7 Other staphylococcus as the cause of diseases classified elsewhere; I69.391 Dysphagia following cerebral infarction; R13.10 Dysphagia, unspecified; I69.320 Aphasia following cerebral infarction
CPT/HCPCS: 36415; 70450; 71045; 74230; 80048; 80053; 81003; 81015; 82962; 83605; 84132; 84145; 84484; 85014; 85018; 85025; 85610; 85730; 86850; 86900; 86901; 87040; 87077; 87086; 87088; 87186; 87205; 93005; 96361; 96365; 99285; J0696; J2405; J7030; P9016